=== PATIENT | male | born 1950 | race Caucasian/White ===

== ENCOUNTER → 2017-02-11 10:42 | Day surgery (SDC) | payer MEDICARE, MEDICAID ==
--- NOTE | 2017-02-03 07:31 | HP ---
CC: Dr. Gonzalez * HISTORY AND PHYSICAL: DATE OF PLANNED ADMISSION AND SURGERY: 02/11/17 HISTORY OF PRESENT ILLNESS: Mr. Avalos is a 66-year-old white male, who is admitted with tight urethral stricture and bladder outlet obstruction for internal urethrotomy and for cystoscopy. Mr. Avalos had a long history of bladder outlet obstruction with slow stream, hesitancy, and feeling of incomplete bladder emptying. He has been maintained on tamsulosin 0.8 mg daily. He had a CT of the abdomen and pelvis about 2 months ago because of left lower quadrant pain. The study showed distended bladder with bladder wall thickening and cystoscopy was recommended. He was referred to our office by Dr. Gonzalez's office for evaluation of the above finding. Postvoid bladder ultrasound showed the residual of 200 cc. Cystoscopy could showed tight stricture in the bulbar urethra explaining his voiding symptoms and the findings on the CT. Past history is relevant for a left scrotal swelling, which was diagnosed to be secondary to a spermatocele. It has been asymptomatic and no treatment was recommended. MEDICATIONS: He is hypertensive, maintained on lisinopril 5 mg daily. He has type 2 diabetes and is maintained on metformin 500 mg daily. He has asthma, on inhaler. ALLERGIES: He denies any allergies to medications. LABORATORY DATA: His last PSA 4 months ago was 0.2. PHYSICAL EXAMINATION GENERAL: Pleasant white male, who looks his age. VITAL SIGNS: Blood pressure 120/80. LUNGS: Clear. HEART: Regular and rhythmic. No murmurs. ABDOMEN: Soft. No masses, no tenderness, and no CVA tenderness. EXTERNAL GENITALIA: Showed a large cystic swelling of the left scrotum consistent with a spermatocele measuring about 10 cm in diameter. No inguinal hernia is noted. RECTAL: Shows a moderately enlarged, but nonsuspicious prostate. IMPRESSION: 1. Elevated postvoid residual and bladder outlet obstruction most likely secondary to tight urethral stricture. 2. Type 2 diabetes mellitus. 3. Hypertension. 4. Left spermatocele. PLAN: For cystoscopy and internal urethrotomy. I discussed the procedure in detail with the patient. The patient understands that there is about 50% incidence of recurrence of the stricture and that he might need to have additional procedures in the future if it recurs. All his questions were answered. [id number]/[facility] #: [id number] [facility]
[~2017-02-11 10:42] MED LIST: Acetaminophen TAB* 325 MG PO PRN; Buffered Lidocaine 0.9% SYRIN* 5 ML/SYR SYRINGE INTRADERM ONE; Chloroprocaine 2%* 20 ML VIAL ONE; Dexamethasone IV* 4 MG/ML 1 ML (4 MG) IV SLOW PU ONE; Dexamethasone IV* 4 MG/ML 1 ML (4 MG) ONE; DiMENhydriNATE IV* 50 MG/ML VIAL IV PUSH PRN; Famotidine IV* 10 MG/ML 2 ML (20 mg) IV ONE; Famotidine IV* 10 MG/ML 2 ML (20 mg) ONE; HYDROmorphone INJ* 1 MG/ML CARPUJECT SYRINGE IV PRN; Ibuprofen TAB* 600 MG PO PRN; Midazolam* 1 MG/ML 2 ML VIAL (2 MG) ONE; Ondansetron INJ* 2 MG/ML VIAL IV PRN; cefTRIAXone(*) 2 GM ADDV.VIAL IVPB ONE; fentaNYL* 50 MCG/ML 2 ML VIAL (100 MCG VIAL) IV PRN; fentaNYL* 50 MCG/ML 2 ML VIAL (100 MCG VIAL) ONE; oxyCODONE/Acetamin 5/325 MG* TAB PO PRN
[2017-02-11 14:10] VITALS: BP 160/65
--- NOTE | 2017-02-12 03:44 | OP ---
CC: Dr. Gonzalez OPERATIVE REPORT: DATE OF OPERATION: 02/11/17 DATE OF : 48 SURGEON: Rowdy Arias MD ANESTHESIOLOGIST: Dr. Ara Rivas. ANESTHESIA: Spinal. PRE-OP DIAGNOSES: 1. Partial urinary retention. 2. Urethral stricture. POST-OP DIAGNOSES: 1. Partial urinary retention. 2. Multiple urethral strictures (bulbar urethra). OPERATIVE PROCEDURE: 1. Direct internal uptake urethrotomies. 2. Cystoscopy. INDICATION FOR PROCEDURE: Mr. Avalos is a 66-year-old white male who has been followed because of symptoms of a bladder outlet obstruction with an elevated postvoid residual. He has been treated with tamsulosin 0.8 mg with no improvement in his symptoms. Office cystoscopy showed a tight stricture in the bulbar urethra. The patient is admitted for the above procedure. PATHOLOGY: There was a partial stricture involving the fossa navicularis. The penile urethra looked normal. There were multiple strictures in the bulbar urethra. The most dense and tightest stricture was in the proximal bulbar urethra just distal to the external sphincter. The prostatic urethra measured 2.5 cm in length and there was only moderate prostate enlargement and obstruction. Examination of the bladder showed a large postvoid residual. There were diffuse heavy trabeculations with small diverticulae. There was also some hyperemia of the bladder wall. No suspicious of bladder lesions seen. No calculi were noted. DESCRIPTION OF PROCEDURE: After successful spinal anesthesia, the patient was placed in the lithotomy position and was prepped and draped for a cystoscopy. Cystoscopy was performed. The fossa navicularis had to be dilated to 22-Chadian to allow the introduction of the internal urethrotome. The urethrotome was then passed under direct vision. The most distal stricture was encountered. A flexible tip guidewire was then introduced through the stricture and positioned inside the urinary bladder and was used as a guide for the urethrotomies. Each stricture was then divided at 12 o'clock. The stricture in the proximal bulbar urethra was also divided at 12 o'clock. Again it was very dense and following the division, it allowed the introduction of the scope into the membranous urethra. The membranous urethra was intact and not involved with the stricture. The scope was then introduced inside the bladder and the bladder was inspected. Additional urethrotomies were performed on the way out keeping the guidewire in place. The 22-Chadian cystoscope was then introduced inside the urethra. There was some bleeding from the urethrotomy site and that was fulgurated with the Bugbee electrode. The cystoscope was then introduced inside the bladder and the bladder was carefully inspected and the above findings were noted. The cystoscope was then removed, keeping the guidewire in place. A size 20- Chadian Navajo-tip catheter was then set on top of the guidewire and introduced without difficulty inside the bladder and the balloon inflated with the 15 cc of water. The patient tolerated the procedure well and left the operating room in good condition. The plan is to leave the Anthony catheter in place for one week to allow the healing of the urethrotomies. Considering the multiplicity of the strictures and the very dense nature of the most proximal one, it is likely that the strictures will recur. If that will happen and the patient become symptomatic, he will need urethroplasties and he will be referred for this procedure to a tertiary care center. [id number]/[facility] #: [id number] BERYL
== END | disposition home or self-care (01) ==
LOC: OR 10:42
PROVIDERS: ATTEND Urology
DX: N35.9 Urethral stricture, unspecified (principal); R33.8 Other retention of urine; I10 Essential (primary) hypertension; E11.9 Type 2 diabetes mellitus without complications; Z79.84 Long term (current) use of oral hypoglycemic drugs; N43.41 Spermatocele of epididymis, single; J45.909 Unspecified asthma, uncomplicated; Z87.891 Personal history of nicotine dependence; M19.90 Unspecified osteoarthritis, unspecified site
CPT/HCPCS: 62323; J0696; J1100; J2250; J2400; J3010

== ENCOUNTER 2018-01-24 06:52 | Day surgery (SDC) | payer MEDICARE, MEDICAID ==
--- NOTE | 2018-01-05 07:45 | HP ---
PREOPERATIVE HISTORY AND PHYSICAL: DATE OF ADMISSION/SURGERY: 01/24/18 DATE OF OFFICE VISIT/ENCOUNTER: 01/02/18 ATTENDING SURGEON: Annette Gunderson MD * (DICTATED BY CHRIS COHEN) PROCEDURE: Left wrist carpal tunnel release. CHIEF COMPLAINT: Numbness and tingling, left hand. HISTORY OF PRESENT ILLNESS: This is a 67-year-old male, who complains of numbness and tingling in his left hand that has been present for over 5 years. At first, it seemed to be somewhat intermittent, but more recently it has become quite consistent and is very bothersome. He says this hand never feels "normal." He had a nerve conduction study performed recently, which showed severe carpal tunnel syndrome on the left. He does not complain of significant pain. He is diabetic and has well-controlled diabetes. He has consented to proceed with surgical intervention for this problem. PAST MEDICAL HISTORY: 1. Hypertension. 2. Asthma. 3. Diabetes mellitus, type 2. 4. Benign prostatic hypertrophy. PAST SURGICAL HISTORY: Left ankle surgery in 1981, left shoulder surgery in 2000. CURRENT MEDICATIONS: 1. Lisinopril 5 mg daily. 2. Metformin HCl 500 mg twice a day. 3. ProAir inhaler p.r.n. 4. Tums 500 mg p.r.n. ALLERGIES: BETADINE causes skin irritation. FAMILY MEDICAL HISTORY: Noncontributory. SOCIAL HISTORY: The patient is retired. He is a former smoker. He quit in 2000. Prior to that, he smoked up to 2 packs per day for 33 years. He does smoke marijuana on occasion. He does not drink alcohol. REVIEW OF SYSTEMS: Negative for general, cephalic, cardiovascular, respiratory , GI, , other musculoskeletal, integumentary, endocrine, neurologic, and hematologic symptoms. Infectious Disease: Negative for history of MRSA, hepatitis C, HIV. PHYSICAL EXAMINATION GENERAL: Well-developed, well-nourished 67-year-old male, in no acute distress. VITAL SIGNS: Height 5 feet 10 inches, weight 182 pounds. Pulse rate 68, blood pressure 136/70. HEENT: Normocephalic, atraumatic. Pupils are equal, round, and reactive to light and accommodation. Extraocular movements are intact. Throat is clear. NECK: Supple. No palpable lymph nodes. PULMONARY: Lungs are clear to auscultation bilaterally. No wheezes, rales, or rhonchi. CARDIOVASCULAR: Regular rate and rhythm. S1, S2. No murmurs, rubs, or gallops. No edema. ABDOMEN: Positive bowel sounds. Soft, nontender. NEUROLOGICAL: Alert and oriented x3. Cranial nerves II through XII are intact. Sensation is intact to light touch. MUSCULOSKELETAL: On exam of his left hand, there is some noticeable thenar wasting. He has full flexion and extension of his fingers. Decreased sensation to light touch at the median nerve distribution. Positive Phalen's test and Tinel's sign of the median nerve at the left wrist. IMAGING STUDIES: EMG nerve conduction studies show severe carpal tunnel syndrome on the left. IMPRESSION: Left carpal tunnel syndrome. PLAN: The patient is scheduled to undergo a left wrist carpal tunnel release with Dr. Gunderson on 01/24/18. He will return to the office 10 days postop for followup and suture removal. A prescription for [place] was e-scribed to the patient's pharmacy for postoperative pain management. CHRIS COHEN [id number]/[facility] #: [id number] BERYL
[~2018-01-24 06:52] MED LIST changes: -Acetaminophen TAB* 325 MG PO PRN; -Chloroprocaine 2%* 20 ML VIAL ONE; -Dexamethasone IV* 4 MG/ML 1 ML (4 MG) IV SLOW PU ONE; -Dexamethasone IV* 4 MG/ML 1 ML (4 MG) ONE; -DiMENhydriNATE IV* 50 MG/ML VIAL IV PUSH PRN; -HYDROmorphone INJ* 1 MG/ML CARPUJECT SYRINGE IV PRN; -Ibuprofen TAB* 600 MG PO PRN; -Midazolam* 1 MG/ML 2 ML VIAL (2 MG) ONE; -Ondansetron INJ* 2 MG/ML VIAL IV PRN; -cefTRIAXone(*) 2 GM ADDV.VIAL IVPB ONE; -fentaNYL* 50 MCG/ML 2 ML VIAL (100 MCG VIAL) IV PRN; -fentaNYL* 50 MCG/ML 2 ML VIAL (100 MCG VIAL) ONE; -oxyCODONE/Acetamin 5/325 MG* TAB PO PRN
[2018-01-24] MEDS ORDERED: Lidocaine 1% INJ* 10 MG/ML 30 ML SDV ONE (07:12)
[2018-01-24] MEDS ORDERED: fentaNYL* 50 MCG/ML 2 ML VIAL (100 MCG VIAL) ONE (07:53)
[2018-01-24] MEDS ORDERED: Midazolam* 1 MG/ML 5 ML VIAL (5 MG) ONE (07:58)
[2018-01-24] MEDS ORDERED: Propofol* 10 MG/ML 20 ML BTL ONE (08:56)
[2018-01-24] MEDS ORDERED: Ondansetron INJ* 2 MG/ML VIAL ONE (08:56)
[2018-01-24] MEDS ORDERED: Ketorolac INJ* 30 MG/ML 1 ML VIAL ONE (08:56)
[2018-01-24] MEDS ORDERED: Lidocaine 2% PF * 5 ML VIAL ONE (08:56)
[2018-01-24] MEDS ORDERED: Acetaminophen TAB* 325 MG PO PRN (09:09)
[2018-01-24 09:21] VITALS: BP 125/64
--- NOTE | 2018-01-25 05:35 | OP ---
DATE OF OPERATION: 01/24/18 [facility] DATE OF : 48 SURGEON: Annette Gunderson MD. SPECIALTY MANUFACTURING SUPERVISOR: CHRIS Barba. ANESTHESIA: Local MAC. PRE-OP DIAGNOSIS: Left carpal tunnel syndrome. POST-OP DIAGNOSIS: Left carpal tunnel syndrome. OPERATIVE PROCEDURE: Left carpal tunnel release. ESTIMATED BLOOD LOSS: Zero. TOURNIQUET TIME: 5 minutes. INDICATIONS FOR PROCEDURE: Eugenio is a 67-year-old male with numbness and tingling in the median nerve distribution of his left hand. He presents for left carpal tunnel release. DESCRIPTION OF PROCEDURE: The patient was brought to the operating room, was given a sedation anesthetic and a local infiltration of 10 cc of 1% plain lidocaine into the palm of his left hand. Skin of his left hand and forearm was prepped and draped in the usual sterile fashion. The hand and forearm were exsanguinated and the tourniquet elevated to 250 mmHg. A longitudinal incision was made in the palm in line with ring finger. We dissected through the subcutaneous tissue sharply with a knife down to the transverse carpal ligament. The labrum was divided sharply with the knife and then more proximally with the scissors. The nerve was dissected free from the surrounding tissue and there was an area of moderate compression at the mid portion of the ligament. The wound was irrigated and the skin edges were reapproximated with 4 -0 nylon suture. The wound was dressed with Xeroform, 4x4, Webril, and an Johnny wrap. The patient tolerated the procedure well and was brought to the recovery room in good condition. [id number]/[facility] #: [id number] [facility]ISION[facility]
== END 2018-01-24 09:32 | disposition home or self-care (01) ==
LOC: OREAST 06:52
PROVIDERS: ATTEND Orthopaedic Surgery
DX: G56.02 Carpal tunnel syndrome, left upper limb (principal); E11.9 Type 2 diabetes mellitus without complications; Z79.84 Long term (current) use of oral hypoglycemic drugs; I10 Essential (primary) hypertension; J45.909 Unspecified asthma, uncomplicated; N40.0 Benign prostatic hyperplasia without lower urinary tract symptoms
CPT/HCPCS: J1885; J2250; J2405; J2704; J3010

== ENCOUNTER 2018-04-17 05:35 | Day surgery (SDC) | payer MEDICARE, MEDICAID ==
--- NOTE | 2018-03-23 07:00 | HP ---
CC: Dr. Gonzalez* HISTORY AND PHYSICAL: DATE OF PLANNED ADMISSION AND SURGERY: 04/17/18 HISTORY OF PRESENT ILLNESS: Mr. Avalos is a 67-year-old white male who is admitted with left scrotal swelling secondary to a combination of hydrocele and spermatocele for surgical excision. I have been following Mr. Avalos for the last 2 years because of bladder outlet obstruction secondary to urethral stricture and because of large cystic left scrotal swelling. In November 2016, because of bladder outlet obstruction, he underwent internal urethrotomies. He did very well and has been voiding adequately with minimal postvoid residual. On his recent visit to my office, the patient reported that the left scrotal swelling has become larger and has been interfering with his physical activities. There is no history of any scrotal trauma or surgery. He had a scrotal ultrasound about 4 years ago; at that time, it showed a large left spermatocele and a small hydrocele. PAST MEDICAL HISTORY AND SYSTEM REVIEW: The patient is hypertensive, well controlled on lisinopril 5 mg daily. He is diabetic, on metformin 500 mg twice a day. He has a history of asthma, on ProAir inhalers. He also has some anxiety and agarophobia and is on no treatment for it. He denies any cardiac disease. ALLERGIES: He denies any allergies to medications. FAMILY HISTORY: Negative. SOCIAL HISTORY: He is a nonsmoker and has no alcohol intake. PHYSICAL EXAMINATION GENERAL: Pleasant white male who looks older than his age and he is somewhat anxious. VITAL SIGNS: Blood pressure 150/80, pulse of 80. LUNGS: Occasional wheezing. HEART: Regular and rhythmic. No murmurs. ABDOMEN: Soft, no masses, no tenderness. No CVA tenderness. EXTERNAL GENITALIA: There is a large transilluminating soft swelling of the left hemiscrotum measuring about 12 cm in size. The right testes feels normal. No inguinal hernia is noted. Rectal exam shows a slightly enlarged but non-suspicious prostate. IMPRESSION: 1. Symptomatic left scrotal swelling secondary to hydrocele and spermatocele. 2. History of urethral strictures. Good result to urethrotomies. 3. Type 2 diabetes mellitus, well controlled on treatment. 4. Essential hypertension, on treatment. PLAN: Plan is for left hydrocelectomy and spermatocelectomy. I discussed the operation in detail with the patient. Some of the special complications including infection and hematoma were discussed. All his questions were answered. [id number]/[facility] #: [id number] BERYL
[~2018-04-17 05:35] MED LIST changes: -Buffered Lidocaine 0.9% SYRIN* 5 ML/SYR SYRINGE INTRADERM ONE; +Buffered Lidocaine 1% SYRIN* 1 ML/SYRINGE INTRADERM ONE; -Famotidine IV* 10 MG/ML 2 ML (20 mg) IV ONE; -Famotidine IV* 10 MG/ML 2 ML (20 mg) ONE
[2018-04-17] MEDS ORDERED: ceFAZolin 2 GM PREMIX in ORs 2 GM/50 ML BAG IVPB ONE (05:59)
[2018-04-17] MEDS ORDERED: Famotidine IV* 10 MG/ML 2 ML (20 mg) ONE (05:59)
[2018-04-17] MEDS ORDERED: Famotidine IV* 10 MG/ML 2 ML (20 mg) IV ONE (06:00)
[2018-04-17] MEDS ORDERED: Lactated Ringers 1000 ML Bag* 1,000 ML IV SCH (06:00)
[2018-04-17] MEDS ORDERED: ROPIVACAINE 5 MG/ML 30 ML BTL (0.5%) ONE (06:46)
[2018-04-17] MEDS ORDERED: Midazolam* 1 MG/ML 5 ML VIAL (5 MG) ONE (07:07)
[2018-04-17] MEDS ORDERED: Ondansetron INJ* 2 MG/ML VIAL ONE (07:07)
[2018-04-17] MEDS ORDERED: fentaNYL* 50 MCG/ML 2 ML VIAL (100 MCG VIAL) ONE ×2 (07:07→07:57)
[2018-04-17] MEDS ORDERED: Ketorolac INJ* 30 MG/ML 1 ML VIAL ONE (07:07)
[2018-04-17] MEDS ORDERED: Lidocaine 2% PF * 5 ML VIAL ONE (07:07)
[2018-04-17] MEDS ORDERED: Propofol* 10 MG/ML 20 ML BTL ONE (07:07)
[2018-04-17] MEDS ORDERED: Dexamethasone IV* 4 MG/ML 1 ML (4 MG) ONE (07:07)
[2018-04-17] MEDS ORDERED: EPHEDrine (Pressors)* 50 MG/ML VIAL ONE (07:52)
[2018-04-17] MEDS ORDERED: Bupivacaine 0.5%* 50 ML VIAL ONE (07:54)
[2018-04-17] MEDS ORDERED: fentaNYL* 50 MCG/ML 2 ML VIAL (100 MCG VIAL) IV PRN (08:26)
[2018-04-17] MEDS ORDERED: oxyCODONE/Acetamin 5/325 MG* TAB PO PRN (08:26)
[2018-04-17] MEDS ORDERED: Naloxone* 0.4 MG/ML 1 ML VIAL IV PRN (08:26)
[2018-04-17] MEDS ORDERED: Ondansetron INJ* 2 MG/ML VIAL IV PRN (08:26)
--- NOTE | 2018-04-17 10:28 | OP ---
CC: Dr. Gonzalez OPERATIVE REPORT: DATE OF OPERATION: DATE OF : 48 SURGEON: Dr. Arias. ANESTHESIOLOGIST: Dr. Collin Wan ANESTHESIA: General. PREOPERATIVE DIAGNOSIS: Left hydrocele/spermatocele. POSTOPERATIVE DIAGNOSIS: Left hydrocele/spermatocele. OPERATIVE PROCEDURES: 1. Left scrotal exploration. 2. Excision of left hydrocele and spermatocele. INDICATION FOR PROCEDURE: Mr. Avalos is a 67-year-old white male who has had left scrotal swelling that recently became larger and more symptomatic, interfering with his physical activities. Workup with scrotal ultrasound showed a large cystic mass arising from the upper pole of the testis that seemed to be consistent with a spermatocele, although on physical examination it was also suggestive of a hydrocele. Because of that finding and the increasing symptoms, surgical correction was advised and accepted. PATHOLOGY: Upon left scrotal exploration, there was a 12 cm diameter cystic mass that was adherent to the upper pole of the left testis. It did not have the characteristic appearance of a spermatocele and although it was adherent to the tunica vaginalis, the pathology seemed to be a combination of a spermatocele with an element of hydrocele with the 2 ortiz adherent to each other. The testis looked normal. There was no inguinal hernia noted. There were yellowish deposits on the inside of the hydrocele sac, possibly indicating adrenal remnants. DESCRIPTION OF PROCEDURE: After successful general anesthesia, the patient was placed in the supine position and was prepped and draped for a scrotal exploration. A transverse oblique incision was carried in the anterior left hemiscrotum in between transverse vessels. The incision was then depended through the dartos muscle. The hydrocele sac was then identified and was bluntly and sharply dissected from the overlying scrotal wall and was delivered through the incision. The hydrocele sac was then divided at the inferior aspect of the testis, was then gently dissected and hydrocele fluid was evacuated. The sac was dissected and the spermatocele was then identified. The spermatic cord vessels were then identified and were isolated and a Edwards clamp applied around them and they were retracted and preserved. By careful sharp and blunt dissection, the spermatocele was dissected off the hydrocele sac all the way to its origin from the testis. At that level, it did not seem to be arising from the epididymis, but was adherent to the superior pole of the testis. This spermatocele was then opened and was excised as close as possible to the testis, preserving the spermatic vessels. The bleeders were then electrocoagulated and controlled. The area where the spermatocele had originated from the testis was then oversewn with running locking sutures of 4-0 Vicryl, achieving very good hemostasis. After making sure there was good hemostasis, the testis was replaced in the scrotal cavity. The cavity was irrigated with saline. A [place] drain was placed in the scrotal cavity and was brought out through a separate stab wound incision in the lower scrotum. The scrotal incision was then closed using running locking 4-0 Vicryl sutures for the dartos muscle. A total of 9 cc of 0.5% Marcaine without epinephrine was used to infiltrate the incision for postoperative analgesia. The skin was then closed using interrupted sutures of 4-0 chromic. The Reed drain was transfixed to the skin with a 3-0 Prolene suture. The patient tolerated the procedure well and left the operating room in good condition. The blood loss was estimated at about 20 cc. The specimen was hydrocele/spermatocele sac. All the counts were correct. [id number]/[facility] #: [id number] [facility]ENTER[facility]
[2018-04-17 10:39] VITALS: BP 139/67
== END 2018-04-17 10:45 | disposition home or self-care (01) ==
LOC: OR 05:35
PROVIDERS: ATTEND Urology
DX: N43.42 Spermatocele of epididymis, multiple (principal); N43.3 Hydrocele, unspecified; I10 Essential (primary) hypertension; E11.9 Type 2 diabetes mellitus without complications; J45.909 Unspecified asthma, uncomplicated
CPT/HCPCS: 88304; J0690; J1100; J1885; J2250; J2405; J2704; J2795; J3010

== ENCOUNTER 2018-06-09 12:09 | Emergency (ER) | payer MEDICARE, MEDICAID ==
[2018-06-09 12:37] VITALS: BP 150/68
--- NOTE | 2018-06-09 14:42 | UC ---
Hip/Pelvis Pain - HPI Summary HPI Summary: Patient presents to urgent care for evaluation of his left hip. Patient states approximately 10 days ago he developed discomfort in lateral left hip. Pt states feels like ache. Pain worse wit walking, change position. no fever, chills. Pt has taken motrin 2-3 times with improvement. no trauma. no back pain. no paresthesia. No h/o similar. No change bowel.bladder. no erythema, rash Medications reviewed this visit - History Of Current Complaint Chief Complaint: UCLowerExtremity Stated Complaint: L HIP PAIN Time Seen by Provider: 06/09/18 14:37 Hx Obtained From: Patient Onset/Duration: Gradual Onset, Lasting Days Pain Intensity: 9 - Allergies/Home Medications Allergies/Adverse Reactions: Allergies Allergy/AdvReac Type Severity Reaction Status Date / Time povidone-iodine Allergy Itching Verified 04/17/18 06:05 [From Betadine] soap [From Betadine] Allergy Itching Verified 04/17/18 06:05 PMH/Surg Hx/FS Hx/Imm Hx Previously Healthy: Yes - Surgical History Surgical History: Yes Surgery Procedure, Year, and Place[place] [facility] [place] 6 [place]CREWS [place] [facility] [place] URETHRAL STRICTURE. LEFT WRIST CARPAL TUNNEL RELEASE-12/2017 - Family History Known Family History: Positive: Non-Contributory - Social History Occupation: Retired Lives: Alone Alcohol Use: None Substance Use Type: Marijuana Substance Use Comment - Amount & Last Used: NIGHTLY Smoking Status (MU): Former Smoker Amount Used/How Often: 33 yrs, 2 packs a day Have You Smoked in the Last Year: No When Did the Patient Quit Smoking/Using Tobacco: 1999 Review of Systems All Other Systems Reviewed And Are Negative: Yes Constitutional: Positive: Negative Skin: Positive: Negative Musculoskeletal: Positive: Other: - left him pain Is Patient Immunocompromised?: No Physical Exam - Summary Physical Exam Summary: Vital Signs Reviewed: Yes A+Ox3, ambultory, stepped onto examination table step -leading left foot Eyes: Conjunctiva Clear, ROXANA. EOM intact and full ENT: Hearing grossly normal TM x 2 clear, mmoist, uvula midline, no exudate, no erythema Neck: Positive: Supple Respiratory: Positive: No respiratory distress, No accessory muscle use + CTA throughout no w/r Cardiovascular: RRR nl s1, s2 no m/r CBT <2 sec 2+ PT abd soft + BS nt/nd no guarding, no distension Musculoskeletal Exam: No spinous process pain c/t/l/s Full AROM c spine mild TTP left lower back paraspinal muscles + SLE with mild discomfot in lateral hip + flex/ext knee+ external rotation, internal rotation of hip with discomfot + mild TT lateral aspect full strength Neurological: Positive: Alert, + sensation throughout LE b/l 2+ patellar without clonus Psychological: Positive: Normal Response To Family Skin: Positive: no rash, no ecchymosis Triage Information Reviewed: Yes Vital Signs: Initial Vital Signs Temp 96.9 F 06/09/18 12:34 Pulse 72 06/09/18 12:34 Resp 16 06/09/18 12:34 BP 150/68 06/09/18 12:34 Pulse Ox 100 06/09/18 12:34 Neck: Positive: 1 Diagnostics - Radiology No standard instances Radiology Interpretation Completed By: Radiologist - Patient Name: JERALD LONGORIA Medical Record#: [id number] Ordering Physician: Michaela PEREZ Acct.#: [id number] : 1950 Age: 67 Sex: M Location: [facility] Exam Date: 06/09/18 1244 ADM Status: REG ER Order Information: HIP LEFT 2 VIEWS AND PELVIS Accession Number: [id number] CPT: 19391 HISTORY: Acute left hip pain . COMPARISONS: March 25, 2017 VIEWS: 3, Frontal view of the pelvis with frontal and frog-leg views of the left hip FINDINGS: BONE DENSITY: Normal. BONES: There is no displaced fracture. JOINTS: There is moderate osteoarthritis of the hips. ALIGNMENT: There is no dislocation. SOFT TISSUES: Unremarkable. OTHER FINDINGS: None. IMPRESSION: OSTEOARTHRITIS. NO ACUTE OSSEOUS INJURY. IF SYMPTOMS PERSIST, RECOMMEND REPEAT IMAGING. <Electronically signed by Steven Sanchez MD in OV> 06/09/18 1317 Dictated By: Steven Sanchez MD Dictated Date/Time: 06/09 1317 Transcribed Date/Time: 06/09/18 1316 Copy to: CC:[facility]; Michaela PEREZ; Mario Gonzalez MD [facility] Imaging - [facility] Imaging - [facility] Imaging - [facility] [id number] [place] [id number] [place] [id number] ph ([phone]) ph ) ph ([phone]) This report is only to be considered final once signed by the Provider(s) as displayed in the "<Electronically Signed by >" field (s). Absence of a signature indicates the report is in a draft status and still needs to be finalized. In the event this document was created by someone other than the signing Provider, the individual initiating the document will be listed in the "Entered by:" or "Dictated by:" rodriguez. 1 of 1 Hip Injury Course/Dx - Course Course Of Treatment: Pt ptrenst with 10 days left lateral hip pain. Pain improves with motrin - taken 3 dose VSS Pt with pain lateral aspect with direct palp and with SLE, internal/external rotation distal CSM intact suspect bursitis imaging NAD will hold systemic pred - pt is a diabetic recommend stretch, ice Motrin/apap f/u with Sport medicine pt comfortable and in agreement with plan Pt with slight elevation BP - pt in discomfort- - recommend f/u with pcp - Differential Dx/Diagnosis Provider Diagnosis: Hip bursitis, left Discharge - Sign-Out/Discharge Documenting (check all that apply): Patient Departure All imaging exams completed and their final reports reviewed: Yes - Discharge Plan Condition: Stable Disposition: HOME Patient Education Materials: Hip Bursitis (ED) Referrals: Mario Gonzalez MD [Primary Care Provider] - [facility] [Provider Group] Annette Gunderson MD [Medical Doctor] - Additional Instructions: - Okay to take tylenol 975mg every 8 hours for pain - Okay to take ibuprofen (Motrin, Advil) 600mg every 8 hours -take with food - do NOT take for more than 4-5 days - apply ice (wrapped in a towel) 20 minutes a time 2-3 times a day for pain - Contact the sports medicine provider, orthopedics, or your doctor to schedule a follow-up early next week - If pain becomes uncontrolled, you develop leg weakness, or you have any other questions or concerns it is recommended you go to the emergency department for further evaluation and treatment - Billing Disposition and Condition Condition: STABLE Disposition: Home
== END 2018-06-09 15:08 | disposition home or self-care (01) ==
LOC: UCEAST 12:09
DX: M70.72 Other bursitis of hip, left hip (principal); M16.12 Unilateral primary osteoarthritis, left hip; Z88.3 Allergy status to other anti-infective agents; Z87.891 Personal history of nicotine dependence
CPT/HCPCS: 99211; G0463

== ENCOUNTER 2018-08-24 09:25 | Emergency (ER) | payer MEDICARE, MEDICAID ==
[2018-08-24 09:46] VITALS: BP 137/85
[2018-08-24] MEDS ORDERED: Aspirin 81 mg CHEW TAB* 81 MG TAB.CHEW PO ONE (10:18)
--- NOTE | 2018-08-24 10:29 | UC ---
UC General HPI - HPI Summary HPI Summary: Patient woke up this morning with SOB and left sided chest pain. Intermittent productive cough. No fevers. +Congestion. Is diaphoretic. No N/V/D. No abdominal pain. Normally uses albuterol 2-3 time per day. Sometimes up to 4x/ day. States he had a stress test about a year ago. Used his albuterol inhaler this morning with no improvement in his sob. Meds: Reviewed. FMhx: No known cardiac history. - History of Current Complaint Chief Complaint: UCRespiratory Stated Complaint: CHEST CONGESTION, AND COUGH Time Seen by Provider: 08/24/18 10:07 Pain Intensity: 7 - Allergy/Home Medications Allergies/Adverse Reactions: Allergies Allergy/AdvReac Type Severity Reaction Status Date / Time povidone-iodine Allergy Itching Verified 04/17/18 06:05 [From Betadine] soap [From Betadine] Allergy Itching Verified 04/17/18 06:05 PMH/Surg Hx/FS Hx/Imm Hx Previously Healthy: Yes Cardiovascular History: Hypertension Respiratory History: COPD - Surgical History Surgical History: Yes Surgery Procedure, Year, and Place: LEFT SHOULDER CYST REMOVED 2000, [facility] [place]. LEFT ANKLE FRACTURE WITH 6 SCREWS 05/1982, [facility] [place]. URETHRAL STRICTURE. LEFT WRIST CARPAL TUNNEL RELEASE-12/2017 - Family History Known Family History: Positive: Non-Contributory - Social History Alcohol Use: None Substance Use Type: Marijuana Substance Use Comment - Amount & Last Used: NIGHTLY Smoking Status (MU): Former Smoker Amount Used/How Often: 33 yrs, 2 packs a day Have You Smoked in the Last Year: No When Did the Patient Quit Smoking/Using Tobacco: 1999 Review of Systems All Other Systems Reviewed And Are Negative: Yes Respiratory: Positive: Shortness Of Breath Cardiovascular: Positive: Chest Pain Physical Exam Triage Information Reviewed: Yes Appearance: Other: - mildly ill appearing, diaphoretic Vital Signs: Initial Vital Signs Temp 97.2 F 08/24/18 09:44 Pulse 85 08/24/18 09:44 Resp 16 08/24/18 09:44 BP 137/85 08/24/18 09:44 Pulse Ox 100 08/24/18 09:44 Vital Signs Reviewed: Yes Eyes: Positive: Conjunctiva Clear ENT: Positive: Pharyngeal erythema Neck: Positive: Supple, Nontender Respiratory: Positive: Other: - diminished breath sounds, good aeration, faint expiratory wheezing, b/l Cardiovascular: Positive: RRR, Other: - systolic murmur heard throughout Diagnostics - EKG Cardiac Rate: NL Course/Dx - Course Course Of Treatment: This is a 67 yr old with PMHx of SOB and CP Concern for his SOB and CP (out of proportion to lung exam) discussed my concern for acute coronary syndrome Discussed taking EMS to [facility]. Patient declined EMS ride and understands the risks, including but not limited to cardiac arrest Patient's friend is with him and will drive him directly to the ED ASA 324 given EKG: unremarkable Sign out given to Mera Calderon - Diagnoses Provider Diagnosis: Chest pain, Shortness of breath Discharge - Sign-Out/Discharge Documenting (check all that apply): Patient Departure All imaging exams completed and their final reports reviewed: No Studies - Discharge Plan Condition: Fair Disposition: HOME-RECOMMEND TO ED Referrals: Mario Gonzalez MD [Primary Care Provider] - Additional Instructions: Recommend going directly to the emergency room for further evaluation of your chest pain and shortness of breath - Billing Disposition and Condition Condition: FAIR Disposition: Home-Recommend to ED
== END 2018-08-24 10:31 | disposition home health service (06) ==
LOC: UCEAST 09:25
DX: R07.9 Chest pain, unspecified (principal); R06.02 Shortness of breath; I10 Essential (primary) hypertension; Z87.891 Personal history of nicotine dependence
CPT/HCPCS: 93005; 99212; A9270-GY; G0463

== ENCOUNTER → 2018-08-24 11:00 | Emergency (ER) | payer MEDICARE, MEDICAID ==
[~2018-08-24 11:00] MED LIST changes: +Albuterol/Ipratropium NEB.SOL* Albuterol 2.5 MG/Ipratropium 0.5 MG 3 ML INH ONE; -Buffered Lidocaine 1% SYRIN* 1 ML/SYRINGE INTRADERM ONE; +Iodixanol* (CONTRAST) 320 MG/ML 100 ML SDV IV ONE; +predniSONE TAB* 20 MG PO ONE
[2018-08-24 12:10] LABS: ABS Basophils 0.1 10^3/ul (0-0.2); ABS Eosinophils 0.1 10^3/ul (0-0.6); ABS Lymphocytes 1.5 10^3/ul (1.0-4.8); ABS Monocytes 0.6 10^3/ul (0-0.8); ABS Neutrophils 6.6 10^3/ul (1.5-7.7); Hematocrit 41 % (42-52); Hemoglobin 13.8 g/dL (14.0-18.0); Lymphocyte % 17.3 %; Mean Corpuscular HGB Conc 34 g/dL (31-36); Mean Corpuscular Hemoglobin 31 pg (27-31); Mean Corpuscular Volume 91 fL (80-94); Mean Platelet Volume 7.6 fL (7.4-10.4); Platelet Count 215 10^3/uL (150-450); Red Blood Count 4.48 10^6 /uL (4.18-5.48); Red Cell Distribution Width 13 % (10-15); White Blood Count 8.9 10^3/uL (3.5-10.8)
--- NOTE | 2018-08-24 12:27 | ED ---
HPI Cardiac - HPI Summary HPI Summary: Pt is a 67 y/o M presenting to the ED with a chief complaint of chest pain. He states he woke up with his lungs feeling tight, and so he went to [facility] for an evaluation. They provided him with 324mg ASA and did an EKG, and sent him here for further workup. The tightness is about a 3/10 currently, compared to before when it was a 7/10. He also reports SOB, diaphoresis, rhinorrhea, and cough with clear phlegm coming up. He notes hx of DM and asthma/COPD, though he is not sure which one. He denies fever, chills, erythema of eyes, sore throat, abdominal pain, N/V, dysuria, hematuria, myalgia, edema, rash, dizziness, tingling, or numbness in extremities. - History of Current Complaint Chief Complaint: EDShortnessOfBreath Stated Complaint: PROBLEMS BREATHING/LUNGS ACHING PER PT Time Seen by Provider: 08/24/18 11:31 Hx Obtained From: Patient Onset/Duration: Started Hours Ago, Still Present Timing: Constant, Lasting Hours Initial Severity: Moderate Current Severity: Mild Pain Intensity: 3 Pain Scale Used: 0-10 Numeric Chest Pain Location: Diffuse Chest Pain Radiates: No Character: Tightness Aggravating Factor(s): Nothing Alleviating Factor(s): Other: - 324mg ASA Associated Signs and Symptoms: Positive: Chest Pain, Shortness of Breath, Diaphoresis, Productive Cough, Nasal Congestion. Negative: Numbness, Tingling, Dizziness, Fever, Chills, Nausea, Abdominal Pain, Vomiting, Edema - Allergy/Home Medications Allergies/Adverse Reactions: Allergies Allergy/AdvReac Type Severity Reaction Status Date / Time povidone-iodine Allergy Itching Verified 08/24/18 11:25 [From Betadine] soap [From Betadine] Allergy Itching Verified 08/24/18 11:25 PMH/Surg Hx/FS Hx/Imm Hx Previously Healthy: Yes Endocrine/Hematology History: Reports: Hx Diabetes - TYPE II- ON ORAL MEDICATION FOR Denies: Hx Anemia Cardiovascular History: Reports: Hx Hypertension - ON MEDICATION FOR Denies: Hx Congestive Heart Failure, Hx Pacemaker/ICD Respiratory History: Reports: Hx Asthma - PRN INHALER Denies: Hx Chronic Obstructive Pulmonary Disease (COPD), Other Respiratory Problems/Disorders GI History: Reports: Hx Hiatal Hernia - very small hiatal hernia Denies: Other GI Disorders History: Reports: Hx Kidney Stones - possible, Other Problems/Disorders - HX OF URETHRAL stricture, had surgery FOR -01/2017 Denies: Hx Dialysis, Hx Renal Disease Musculoskeletal History: Reports: Hx Arthritis - have in RIGHT big toe, hands, left shoulder, Hx Bursitis - HX OF-bottom of right foot-REPORTS HAD INJECTION FOR-~2-3 YEARS AGO Denies: Other Musculoskeletal History Sensory History: Reports: Hx Contacts or Glasses - glasses Denies: Hx Hearing Aid Opthamlomology History: Reports: Hx Contacts or Glasses - glasses Neurological History: Denies: Other Neuro Impairments/Disorders Psychiatric History: Denies: Hx Panic Disorder - Cancer History Hx Chemotherapy: No - Surgical History Surgery Procedure, Year, and Place: LEFT SHOULDER CYST REMOVED 2000, [facility] [place]. LEFT ANKLE FRACTURE WITH 6 SCREWS 05/1982, [facility] [place]. URETHRAL STRICTURE. LEFT WRIST CARPAL TUNNEL RELEASE-12/2017 Hx Anesthesia Reactions: No - Immunization History Date of Tetanus Vaccine: unk Date of Influenza Vaccine: unk Infectious Disease History: No Infectious Disease History: Denies: Traveled Outside the [place] in Last 30 Days - Family History Known Family History: Negative: Cardiac Disease - Social History Alcohol Use: None Hx Substance Use: Yes Substance Use Type: Reports: Marijuana Substance Use Comment - Amount & Last Used: NIGHTLY Hx Tobacco Use: No Smoking Status (MU): Former Smoker Amount Used/How Often: 33 yrs, 2 packs a day Have You Smoked in the Last Year: No Review of Systems Positive: Skin Diaphoresis. Negative: Fever, Chills Negative: Erythema Positive: Nasal Discharge. Negative: Sore Throat Positive: Chest Pain Positive: Shortness Of Breath, Cough Negative: Abdominal Pain, Vomiting, Nausea Negative: dysuria, hematuria Negative: Myalgia, Edema Negative: Rash Neurological: Negative - dizziness Negative: Paresthesia, Numbness Physical Exam - Summary Physical Exam Summary: Constitutional: Well-developed, Well-nourished, Alert. (-) Distressed Skin: Warm, Dry HENT: Normocephalic; Atraumatic Eyes: Conjunctiva normal Neck: Musculoskeletal ROM normal neck. (-) JVD, (-) Stridor, (-) Tracheal deviation Cardio: Rhythm regular, rate normal, Heart sounds normal; Intact distal pulses; The pedal pulses are 2+ and symmetric. Radial pulses are 2+ and symmetric. (-) Murmur Pulmonary/Chest wall: Effort normal. (-) Respiratory distress, (-) Wheezes, (-) Rales Abd: Soft, (-) tenderness, (-) Distension, (-) Guarding, (-) Rebound Musculoskeletal: (-) Edema Lymph: (-) Cervical adenopathy Neuro: Alert, Oriented x3 Psych: Mood and affect Normal Triage Information Reviewed: Yes Vital Signs On Initial Exam: Initial Vitals Temp Pulse Resp BP Pulse Ox 97.1 F 64 18 210/101 98 08/24/18 11:02 08/24/18 11:02 08/24/18 11:02 08/24/18 11:02 08/24/18 11:02 Vital Signs Reviewed: Yes Diagnostics - Vital Signs Vital Signs Temp Pulse Resp BP Pulse Ox 08/24/18 11:02 97.1 F 64 18 210/101 98 - Laboratory Lab Results: Lab Results 08/24/18 Range/Units 12:01 WBC 8.9 (3.5-10.8) 10^3/uL RBC 4.48 (4.18-5.48) 10^6 /uL Hgb 13.8 L (14.0-18.0) g/dL Hct 41 L (42-52) % MCV 91 (80-94) fL MCH 31 (27-31) pg MCHC 34 (31-36) g/dL RDW 13 (10-15) % Plt Count 215 (150-450) 10^3/uL MPV 7.6 (7.4-10.4) fL Neut % (Auto) 74.1 % Lymph % (Auto) 17.3 % Sutter % (Auto) 6.6 % Eos % (Auto) 1.0 % Baso % (Auto) 1.0 % Absolute Neuts (auto) 6.6 (1.5-7.7) 10^3/ul Absolute Lymphs (auto) 1.5 (1.0-4.8) 10^3/ul Absolute Monos (auto) 0.6 (0-0.8) 10^3/ul Absolute Eos (auto) 0.1 (0-0.6) 10^3/ul Absolute Basos (auto) 0.1 (0-0.2) 10^3/ul Absolute Nucleated RBC 0.0 10^3/ul Nucleated RBC % 0.0 Result Diagrams: 08/24/18 12:01 08/24/18 12:01 Lab Statement: Any lab studies that have been ordered have been reviewed, and results considered in the medical decision making process. - Radiology CXR Radiology Interpretation Completed By: Radiologist Summary of Radiographic Findings: Findings most consistent with COPD. No evidence for acute disease. ED physician has reviewed this report. - CT CTA Chest/Thorax CT Interpretation Completed By: Radiologist Summary of CT Findings: NO PULMONARY ARTERIAL FILLING DEFECT TO SUGGEST PULMONARY EMBOLISM. ED physician has reviewed this report. - EKG 1135 Cardiac Rate: Bradycardia - 57bpm EKG Rhythm: Sinus Bradycardia ST Segment: Normal Ectopy: None Summary of EKG Findings: EKG at 1135 shows sinus bradycardia at 57bpm with no STEMI. Re-Evaluation - Re-Evaluation 1st re-eval Re-Evaluation Time: 12:43 Change: Improved Comment: Pt states he is feeling much better, and that the L sided chest pain is now minimal. Disposition - Course Course Of Treatment: Pt is a 67 y/o M presenting to the ED with a chief complaint of chest pain. He states he woke up with his lungs feeling tight. He was given 324mg of ASA at [facility] and an EKG was done. The tightness is about a 3/10 currently, compared to before when it was a 7/10. He also reports SOB, diaphoresis, rhinorrhea, and cough with clear phlegm coming up. He denies fever , chills, erythema of eyes, sore throat, abdominal pain, N/V, dysuria, hematuria , myalgia, edema, rash, dizziness, tingling, or numbness in extremities. He notes hx of DM and asthma/COPD. EKG at 1135 shows sinus bradycardia at 57bpm with no STEMI. CXR shows: Findings most consistent with COPD. No evidence for acute disease. Pt's D-Dimer is 231. CTA Chest/Thorax shows: NO PULMONARY ARTERIAL FILLING DEFECT TO SUGGEST PULMONARY EMBOLISM. Pt will be sent home with dx of chest pain and COPD exacerbation. The pt is stable and agreeable with this plan. - Diagnoses Provider Diagnoses: Chest pain, COPD exacerbation Discharge - Sign-Out/Discharge Documenting (check all that apply): Patient Departure Patient Received Moderate/Deep Sedation with Procedure: No - Discharge Plan Condition: Stable Disposition: HOME Referrals: Mario Gonzalez MD [Primary Care Provider] - Additional Instructions: Please follow up with your primary care provider within the next 2-3 days. Return to the emergency department with any new or worsening symptoms. - Attestation Statements Document Initiated by Scribe: Yes Documenting Scribe: Elyse oCllier Provider For Whom Scribe is Documenting (Include Credential): Frederic Pineda MD. Scribe Attestation: Elyse Gastelum, scribed for Frederic Pineda MD. on 08/24/18 at 1703. Status of Scribe Document: Ready
[2018-08-24 12:28] LABS: Albumin 4.1 g/dL (3.2-5.2); Albumin/Globulin Ratio 1.4 (1-3); BUN/Creatinine Ratio 21.6 (8-20); Calcium 9.7 mg/dL (8.6-10.3); EGFR African American 104.2 (>60); EGFR Non-African American 86.1 (>60); Globulin 2.9 g/dL (2-4); Potassium 4.1 mmol/L (3.5-5.0); Total Bilirubin 0.5 mg/dL (0.2-1.0)
[2018-08-24 17:29] VITALS: BP 166/90
== END | disposition home or self-care (01) ==
LOC: ED 11:00
DX: J44.1 Chronic obstructive pulmonary disease with (acute) exacerbation (principal); I10 Essential (primary) hypertension; E11.9 Type 2 diabetes mellitus without complications; Z79.84 Long term (current) use of oral hypoglycemic drugs; Z79.899 Other long term (current) drug therapy; Z87.891 Personal history of nicotine dependence
CPT/HCPCS: 36415; 71045; 71275; 80053; 83605; 84484; 85025; 85379; 93005; 99283; A9270-GY; J7512; Q9967

== ENCOUNTER 2018-09-09 08:30 | Emergency (ER) | payer MEDICARE, MEDICAID ==
--- NOTE | 2018-09-09 09:17 | ED ---
Hypertension - HPI Summary HPI Summary: Pt is a 67 y/o M presenting to the ED with a chief complaint of HTN. He states his blood pressure has been elevated the last couple of days, at around 175/74. He reports accompanying palpitations and high blood sugar, at 222 last time he checked. He states he was recently on Prednisone for bronchitis, and he takes Lisinopril 5mg daily for his HTN. He also notes that he lives alone which caused him to worry more about his elevated levels. - History of Current Complaint Chief Complaint: EDHypertension Stated Complaint: HIGH BLOOD PRESSURE PER PT Time Seen by Provider: 09/09/18 08:50 Hx Obtained From: Patient Onset/Duration: Started Days Ago, Still Present Timing: Constant, Lasting Days Reported Blood Pressure Prior To Arrival: 175/74 Aggravating Factor(s): Nothing Alleviating Factor(s): Nothing Associated Signs & Symptoms: Other: - palpitations, high blood sugar - Allergies/Home Medications Allergies/Adverse Reactions: Allergies Allergy/AdvReac Type Severity Reaction Status Date / Time povidone-iodine Allergy Itching Verified 09/09/18 08:40 [From Betadine] soap [From Betadine] Allergy Itching Verified 09/09/18 08:40 PMH/Surg Hx/FS Hx/Imm Hx Previously Healthy: Yes Endocrine/Hematology History: Reports: Hx Diabetes - TYPE II- ON ORAL MEDICATION FOR Denies: Hx Anemia Cardiovascular History: Reports: Hx Hypertension - ON MEDICATION FOR Denies: Hx Congestive Heart Failure, Hx Pacemaker/ICD Respiratory History: Reports: Hx Asthma - PRN INHALER Denies: Hx Chronic Obstructive Pulmonary Disease (COPD), Other Respiratory Problems/Disorders GI History: Reports: Hx Hiatal Hernia - very small hiatal hernia Denies: Other GI Disorders History: Reports: Hx Kidney Stones - possible, Other Problems/Disorders - HX OF URETHRAL stricture, had surgery FOR -01/2017 Denies: Hx Dialysis, Hx Renal Disease Musculoskeletal History: Reports: Hx Arthritis - have in RIGHT big toe, hands, left shoulder, Hx Bursitis - HX OF-bottom of right foot-REPORTS HAD INJECTION FOR-~2-3 YEARS AGO Denies: Other Musculoskeletal History Sensory History: Reports: Hx Contacts or Glasses - glasses Denies: Hx Hearing Aid Opthamlomology History: Reports: Hx Contacts or Glasses - glasses Neurological History: Denies: Other Neuro Impairments/Disorders Psychiatric History: Denies: Hx Panic Disorder - Cancer History Hx Chemotherapy: No - Surgical History Surgery Procedure, Year, and Place: LEFT SHOULDER CYST REMOVED 2000, [facility] [place]. LEFT ANKLE FRACTURE WITH 6 SCREWS 05/1982, [facility] [place]. URETHRAL STRICTURE. LEFT WRIST CARPAL TUNNEL RELEASE-12/2017 Hx Anesthesia Reactions: No - Immunization History Date of Tetanus Vaccine: unk Date of Influenza Vaccine: unk Infectious Disease History: No Infectious Disease History: Denies: Traveled Outside the [place] in Last 30 Days - Family History Known Family History: Negative: Cardiac Disease - Social History Alcohol Use: None Hx Substance Use: Yes Substance Use Type: Reports: Marijuana Substance Use Comment - Amount & Last Used: NIGHTLY Hx Tobacco Use: No Smoking Status (MU): Former Smoker Amount Used/How Often: 33 yrs, 2 packs a day Have You Smoked in the Last Year: No Review of Systems Positive: Other - HTN, high blood sugar Positive: Palpitations All Other Systems Reviewed And Are Negative: Yes Physical Exam - Summary Physical Exam Summary: Appearance: The patient is well-nourished in no acute distress and in no acute pain. Skin: The skin is warm and dry and skin color reflects adequate perfusion. HEENT: The head is normocephalic and atraumatic. The pupils are equal and reactive. The conjunctivae are clear and without drainage. Nares are patent and without drainage. Mouth reveals moist mucous membranes and the throat is without erythema and exudate. The external ears are intact. The ear canals are patent and without drainage. The tympanic membranes are intact. Neck: The neck is supple with full range of motion and non-tender. There are no carotid bruits. There is no neck vein distension. Respiratory: Chest is non-tender. There are crackles in both lung rodriguez. Cardiovascular: Heart is mostly regular with an occasional irregular beat. There is no murmur or rub auscultated. There is no peripheral edema and pulses are symmetrical and equal. Abdomen: The abdomen is soft and non-tender. There are normal bowel sounds heard in all four quadrants and there is no organomegaly palpated. Musculoskeletal: There is no back tenderness noted. Extremities are non-tender with full range of motion. There is good capillary refill. There is no peripheral edema or calf tenderness elicited. Neurological: Patient is alert and oriented to person, place and time. The patient has symmetrical motor strength in all four extremities. Cranial nerves are grossly intact. Deep tendon reflexes are symmetrical and equal in all four extremities. Psychiatric: The patient has an appropriate affect and does not exhibit any anxiety or depression. Triage Information Reviewed: Yes Vital Signs On Initial Exam: Initial Vitals Temp Pulse Resp BP Pulse Ox 97.9 F 108 16 182/101 98 09/09/18 08:36 09/09/18 08:36 09/09/18 08:36 09/09/18 08:36 09/09/18 08:36 Vital Signs Reviewed: Yes Diagnostics - Vital Signs Vital Signs Temp Pulse Resp BP Pulse Ox 09/09/18 09:00 111 22 99 09/09/18 08:59 106 19 201/108 09/09/18 08:58 103 21 98 09/09/18 08:36 97.9 F 108 16 182/101 98 - Laboratory Result Diagrams: 09/09/18 09:43 09/09/18 09:43 Lab Statement: Any lab studies that have been ordered have been reviewed, and results considered in the medical decision making process. - EKG 0944 Cardiac Rate: NL - 85bpm EKG Rhythm: Sinus Rhythm ST Segment: Normal Ectopy: None Summary of EKG Findings: EKG at 0944 shows NSR at 85bpm with normal ST, no ectopy, and no STEMI. Hypertension Course/Dx - Course Course Of Treatment: Mr. Avalos presented with a concern that his blood pressures been high. He's also been feeling his heart rate going fast. He was nontoxic in appearance with stable vital signs. He was placed on a monitor and observed while labs and EKG were obtained. These were within normal limits. There is no evidence for end organ damage and his blood pressure although it was high here was not critically high. We talked about long-term sequela of high blood pressure and he will follow-up with Dr. Becker. - Diagnoses Provider Diagnoses: HTN (hypertension) Discharge - Sign-Out/Discharge Documenting (check all that apply): Patient Departure Patient Received Moderate/Deep Sedation with Procedure: No - Discharge Plan Condition: Stable Disposition: HOME Referrals: Mario Gonzalez MD [Primary Care Provider] - Additional Instructions: Please follow up with Dr. Gonzalez within the next 2-3 days. Return to the ED with any new or worsening symptoms. - Billing Disposition and Condition Condition: STABLE Disposition: Home - Attestation Statements Document Initiated by Scribe: Yes Documenting Scribe: Elyse Collier Provider For Whom Cony is Documenting (Include Credential): Ubaldo Soriano MD. Scribe Attestation: Elyse Gastelum, scribed for Ubaldo Soriano MD. on 09/09/18 at 1559. Scribe Documentation Reviewed: Yes Provider Attestation: The documentation as recorded by the [email or web address] accurately reflects the service I personally performed and the decisions made by me, Ubaldo Soriano MD. Status of Scribe Document: Viewed
[2018-09-09 10:21] LABS: ABS Lymphocytes 1.2 10^3/ul (1.0-4.8); ABS Monocytes 0.4 10^3/ul (0-0.8); ABS Neutrophils 5.4 10^3/ul (1.5-7.7); Eosinophil % 0.4 %; Hematocrit 42 % (42-52); Hemoglobin 14.1 g/dL (14.0-18.0); Lymphocyte % 16.9 %; Mean Corpuscular HGB Conc 34 g/dL (31-36); Mean Corpuscular Hemoglobin 31 pg (27-31); Mean Corpuscular Volume 92 fL (80-94); Platelet Count 222 10^3/uL (150-450); Red Blood Count 4.52 10^6 /uL (4.18-5.48); Red Cell Distribution Width 13 % (10-15); White Blood Count 7.1 10^3/uL (3.5-10.8)
[2018-09-09 10:26] LABS: INR 0.99 (0.82-1.09)
[2018-09-09 10:39] LABS: Albumin 4.2 g/dL (3.2-5.2); Albumin/Globulin Ratio 1.4 (1-3); Calcium 9.6 mg/dL (8.6-10.3); EGFR African American 102.9 (>60); Globulin 2.9 g/dL (2-4); Potassium 3.7 mmol/L (3.5-5.0); Total Bilirubin 0.9 mg/dL (0.2-1.0); Total Protein 7.1 g/dL (6.4-8.9)
[2018-09-09 11:15] LABS: TSH (Thyroid Stimulating Horm) 0.47 mcIU/mL (0.34-5.60)
[2018-09-09 12:01] VITALS: BP 157/66
== END 2018-09-09 11:54 | disposition home or self-care (01) ==
LOC: ED 08:30
DX: I10 Essential (primary) hypertension (principal); E11.9 Type 2 diabetes mellitus without complications; Z79.84 Long term (current) use of oral hypoglycemic drugs; Z87.891 Personal history of nicotine dependence; Z88.8 Allergy status to other drugs, medicaments and biological substances; Z79.899 Other long term (current) drug therapy
CPT/HCPCS: 36415; 80053; 83605; 84443; 84484; 85025; 85610; 93005; 99283